=== PATIENT | female | born 1935 | race Caucasian/White ===

== ENCOUNTER → 2016-10-16 | Outpatient (CLI) | payer OTHER ==
[~2016-10-16] MED LIST: LOVASTATIN10 MG PO
== END ==
LOC: MAMMO 12:45
DX: Z12.31 Encounter for screening mammogram for malignant neoplasm of breast (principal)
CPT/HCPCS: G0202

== ENCOUNTER → 2017-10-10 | Outpatient (CLI) | payer OTHER ==
[2013-03-26 09:47] VITALS: BP 166/68
[2017-10-10 09:39] LABS: ALBUMIN 4.1 g/dL (3.5-5.0); BUN/CREATININE RATIO 18.7 (6.0-26.0); CALCIUM 9.6 mg/dL (8.4-10.2); POTASSIUM 4.1 mmol/L (3.6-5.0); TOTAL BILIRUBIN 0.5 mg/dL (0.2-1.3); TOTAL PROTEIN 7.6 g/dL (6.3-8.2)
== END ==
LOC: LAB 09:10
PROVIDERS: Family Medicine
DX: E78.00 Pure hypercholesterolemia, unspecified (principal); R01.1 Cardiac murmur, unspecified; I10 Essential (primary) hypertension

== ENCOUNTER → 2018-10-30 | Outpatient (CLI) | payer OTHER ==
[2013-03-26 09:47] VITALS: BP 166/68
[2018-10-30 09:24] LABS: ALBUMIN 4.3 g/dL (3.5-5.0); POTASSIUM 4.3 mmol/L (3.6-5.0); TOTAL BILIRUBIN 0.5 mg/dL (0.2-1.3); TOTAL PROTEIN 7.7 g/dL (6.3-8.2)
== END ==
LOC: LAB 08:41
PROVIDERS: Family Medicine
DX: E78.00 Pure hypercholesterolemia, unspecified (principal); I10 Essential (primary) hypertension; R01.1 Cardiac murmur, unspecified

== ENCOUNTER → 2018-12-30 | Outpatient (CLI) | payer OTHER ==
[2013-03-26 09:47] VITALS: BP 166/68
== END ==
LOC: MAMMO 10:39
DX: Z12.31 Encounter for screening mammogram for malignant neoplasm of breast (principal); N95.1 Menopausal and female climacteric states

== ENCOUNTER → 2018-12-30 | Outpatient (CLI) | payer OTHER ==
[2013-03-26 09:47] VITALS: BP 166/68
== END ==
LOC: RAD 10:40 → MAMMO 11:30
DX: Z12.31 Encounter for screening mammogram for malignant neoplasm of breast (principal); Z13.820 Encounter for screening for osteoporosis; M85.88 Other specified disorders of bone density and structure, other site

== ENCOUNTER → 2019-04-10 | Outpatient (CLI) | payer OTHER ==
[2013-03-26 09:47] VITALS: BP 166/68
== END ==
LOC: RAD 10:16
DX: J01.00 Acute maxillary sinusitis, unspecified (principal); J30.9 Allergic rhinitis, unspecified; R05 Cough

== ENCOUNTER 2019-08-27 00:13 | Emergency (ER) | payer MEDICARE ==
[~2019-08-27] VITALS: Ht 165.1 cm; Wt 77.7 kg
[2019-08-27] MEDS ORDERED: MULTIVITAMIN1 SGL PO (00:25)
[2019-08-27] MEDS ORDERED: GOOD SENSE ASPI81 M1 PO (00:25)
[2019-08-27] MEDS ORDERED: ALENDRONATE SOD35 M1 PO (00:26)
[2019-08-27] MEDS ORDERED: ZESTRIL5 M1 PO (00:26)
[2019-08-27 00:39] LABS: URINE APPEARANCE CLOUDY; URINE BILIRUBIN NEGATIVE (NEGATIVE); URINE BLOOD 250 ery/uL (NEGATIVE); URINE COLOR YELLOW; URINE GLUCOSE NEGATIVE (NEGATIVE); URINE KETONE NEGATIVE (NEGATIVE); URINE LEUKOCYTE ESTERASE 2+ (NEGATIVE); URINE NITRATE NEGATIVE (NEGATIVE); URINE PROTEIN(semi-quant) 2+ mg/dL (NEGATIVE); URINE UROBILINOGEN NORMAL (NORMAL)
[2019-08-27 00:40] LABS: URINE WBC >50 /hpf (0-3)
[2019-08-27] MEDS ORDERED: CIPRO500 M1 PO (00:57)
[2019-08-27 01:05] VITALS: BP 180/84
[2019-09-01] MEDS ORDERED: MACROBID 100 M100 MG PO (09:26)
== END 2019-08-27 01:05 | disposition home or self-care (01) ==
LOC: ED 00:13
PROVIDERS: Physician Assistant
DX: N39.0 Urinary tract infection, site not specified (principal); I10 Essential (primary) hypertension; M81.0 Age-related osteoporosis without current pathological fracture; E78.5 Hyperlipidemia, unspecified; Z79.82 Long term (current) use of aspirin; Z90.49 Acquired absence of other specified parts of digestive tract

== ENCOUNTER → 2019-10-19 | Outpatient (CLI) | payer MEDICARE ==
[~2019-10-19] MED LIST changes: +ALENDRONATE SOD35 M1 PO; +CIPRO500 M1 PO; +GOOD SENSE ASPI81 M1 PO; +MACROBID 100 M100 MG PO; +MULTIVITAMIN1 SGL PO; +ZESTRIL5 M1 PO
[2019-10-19 09:20] LABS: ALBUMIN 4.2 g/dL (3.4-4.8); POTASSIUM 4.2 mmol/L (3.5-5.1)
[2019-10-19 09:21] LABS: CALCIUM 10.2 mg/dL (8.3-10.5)
[2019-10-19 09:24] LABS: TOTAL BILIRUBIN 0.5 mg/dL (0.2-1.2)
== END ==
LOC: LAB 08:55
PROVIDERS: Family Medicine
DX: E78.00 Pure hypercholesterolemia, unspecified (principal)

== ENCOUNTER → 2020-10-12 | Outpatient (CLI) | payer MEDICARE ==
[2020-10-12 09:41] LABS: POTASSIUM 4.5 mmol/L (3.5-5.1)
[2020-10-12 09:43] LABS: CALCIUM 9.5 mg/dL (8.3-10.5)
[2020-10-12 09:44] LABS: TOTAL PROTEIN 7.2 g/dL (6.2-8.1)
[2020-10-12 09:46] LABS: TOTAL BILIRUBIN 0.5 mg/dL (0.2-1.2)
== END ==
LOC: LAB 09:14
PROVIDERS: Family Medicine
DX: I10 Essential (primary) hypertension (principal); E78.00 Pure hypercholesterolemia, unspecified

== ENCOUNTER → 2020-12-20 | Outpatient (CLI) | payer MEDICARE | LOC: MAMMO 12-13 08:30 | DX: Z12.31 Encounter for screening mammogram for malignant neoplasm of breast (principal) ==

== ENCOUNTER → 2020-12-20 | Outpatient (CLI) | payer MEDICARE | LOC: MAMMO 12-13 09:15 → RAD 09:39 → MAMMO 10:45 | DX: M81.0 Age-related osteoporosis without current pathological fracture (principal); M85.9 Disorder of bone density and structure, unspecified ==

== ENCOUNTER → 2021-11-03 | Outpatient (CLI) | payer MEDICARE ==
[2021-11-03 09:22] LABS: ALBUMIN 4.2 g/dL (3.4-4.8); POTASSIUM 4.8 mmol/L (3.5-5.1)
[2021-11-03 09:23] LABS: CALCIUM 10.1 mg/dL (8.3-10.5)
[2021-11-03 09:26] LABS: TOTAL BILIRUBIN 0.5 mg/dL (0.2-1.2)
== END ==
LOC: LAB 08:38
PROVIDERS: Family Medicine
DX: E78.00 Pure hypercholesterolemia, unspecified (principal); I10 Essential (primary) hypertension

== ENCOUNTER → 2023-04-18 | Outpatient (CLI) | payer MEDICARE ==
[2023-04-18 08:55] LABS: BASO # 0.06 K/mm3 (0.02-0.10); EOS # 0.12 K/mm3 (0.04-0.40); EOS % 1.6 % (1.0-5.0); HEMATOCRIT 39.1 % (37.0-47.0); HEMOGLOBIN 12.8 g/dL (12.5-16.0); LYMPH# 1.49 K/mm3 (1.50-4.00); MEAN CELL VOLUME 99 fl (78-100); MEAN CORPUSCULAR HEMOGLOBIN 33 pg (27-31); MEAN CORPUSCULAR HGB CONC 33 g/dL (33-37); MEAN PLATELET VOLUME 9.6 fl (7.4-10.4); MONO # 0.24 K/mm3 (0.20-0.80); NEU # 5.43 K/mm3 (1.40-6.50); PLATELET COUNT 257 K/mm3 (130-400); RED BLOOD COUNT 3.94 M/mm3 (4.10-5.30); WHITE BLOOD COUNT 7.3 K/mm3 (4.8-10.8)
[2023-04-18 08:59] LABS: ALBUMIN 3.8 g/dL (3.4-4.8); POTASSIUM 4.6 mmol/L (3.5-5.1)
[2023-04-18 09:02] LABS: TOTAL PROTEIN 6.9 g/dL (6.2-8.1)
== END ==
LOC: LAB 08:37
PROVIDERS: Internal Medicine
DX: C25.0 Malignant neoplasm of head of pancreas (principal)

== ENCOUNTER → 2023-04-25 | Outpatient (CLI) | payer MEDICARE ==
[2023-04-25 09:21] LABS: BASO # 0.01 K/mm3 (0.02-0.10); EOS # 0.05 K/mm3 (0.04-0.40); EOS % 0.8 % (1.0-5.0); HEMATOCRIT 35.9 % (37.0-47.0); HEMOGLOBIN 11.8 g/dL (12.5-16.0); MEAN CELL VOLUME 99 fl (78-100); MEAN CORPUSCULAR HEMOGLOBIN 33 pg (27-31); MEAN CORPUSCULAR HGB CONC 33 g/dL (33-37); MONO # 0.09 K/mm3 (0.20-0.80); NEU # 4.85 K/mm3 (1.40-6.50); PLATELET COUNT 145 K/mm3 (130-400); RED BLOOD COUNT 3.62 M/mm3 (4.10-5.30); RED CELL DISTRIBUTION WIDTH 13.7 % (11.5-14.5); WHITE BLOOD COUNT 5.9 K/mm3 (4.8-10.8)
[2023-04-25 09:26] LABS: ALBUMIN 3.7 g/dL (3.4-4.8)
[2023-04-25 09:27] LABS: POTASSIUM 4.3 mmol/L (3.5-5.1)
[2023-04-25 09:28] LABS: CALCIUM 9.8 mg/dL (8.3-10.5)
[2023-04-25 09:29] LABS: TOTAL PROTEIN 6.6 g/dL (6.2-8.1)
== END ==
LOC: LAB 09:01
PROVIDERS: Internal Medicine
DX: C25.0 Malignant neoplasm of head of pancreas (principal)

== ENCOUNTER → 2023-05-23 | Outpatient (CLI) | payer MEDICARE ==
[2023-05-23 10:22] LABS: ALBUMIN 3.5 g/dL (3.4-4.8); POTASSIUM 4.8 mmol/L (3.5-5.1)
[2023-05-23 10:23] LABS: CALCIUM 9.2 mg/dL (8.3-10.5)
[2023-05-23 10:25] LABS: TOTAL PROTEIN 6.2 g/dL (6.2-8.1)
[2023-05-23 10:26] LABS: TOTAL BILIRUBIN 0.7 mg/dL (0.2-1.2)
[2023-05-23 10:37] LABS: HEMATOCRIT 33.9 % (37.0-47.0); HEMOGLOBIN 11.1 g/dL (12.5-16.0); MEAN CELL VOLUME 99 fl (78-100); MEAN CORPUSCULAR HEMOGLOBIN 32 pg (27-31); MEAN CORPUSCULAR HGB CONC 33 g/dL (33-37); PLATELET COUNT 117 K/mm3 (130-400); RED BLOOD COUNT 3.44 M/mm3 (4.10-5.30); RED CELL DISTRIBUTION WIDTH 15.3 % (11.5-14.5)
[2023-05-23 15:40] LABS: LYMPHOCYTE 11 % (20-51); NEUTROPHILS 89 % (42-75)
== END ==
LOC: LAB 09:32
PROVIDERS: Internal Medicine
DX: C25.0 Malignant neoplasm of head of pancreas (principal)

== ENCOUNTER → 2023-05-28 | Outpatient (CLI) | payer MEDICARE | LOC: RAD 08:51 | DX: C25.0 Malignant neoplasm of head of pancreas (principal); K43.9 Ventral hernia without obstruction or gangrene; E27.9 Disorder of adrenal gland, unspecified | CPT/HCPCS: Q9967 ==

== ENCOUNTER → 2023-06-10 | Outpatient (CLI) | payer MEDICARE ==
[2023-06-10 14:19] LABS: ALBUMIN 3.3 g/dL (3.4-4.8)
[2023-06-10 14:21] LABS: CALCIUM 9.8 mg/dL (8.3-10.5)
[2023-06-10 14:22] LABS: TOTAL PROTEIN 6.8 g/dL (6.2-8.1)
[2023-06-10 14:24] LABS: TOTAL BILIRUBIN 0.6 mg/dL (0.2-1.2)
== END ==
LOC: LAB 13:45
PROVIDERS: Internal Medicine
DX: C25.0 Malignant neoplasm of head of pancreas (principal)

== ENCOUNTER → 2023-06-13 | Outpatient (CLI) | payer MEDICARE ==
[2023-06-13 11:10] LABS: BASO # 0.01 K/mm3 (0.02-0.10); EOS # 0.01 K/mm3 (0.04-0.40); EOS % 0.2 % (1.0-5.0); HEMATOCRIT 35.5 % (37.0-47.0); HEMOGLOBIN 11.4 g/dL (12.5-16.0); LYMPH# 0.83 K/mm3 (1.50-4.00); MEAN CELL VOLUME 98 fl (78-100); MEAN CORPUSCULAR HEMOGLOBIN 31 pg (27-31); MEAN CORPUSCULAR HGB CONC 32 g/dL (33-37); MONO # 0.13 K/mm3 (0.20-0.80); PLATELET COUNT 229 K/mm3 (130-400); RED BLOOD COUNT 3.64 M/mm3 (4.10-5.30); RED CELL DISTRIBUTION WIDTH 16.6 % (11.5-14.5); WHITE BLOOD COUNT 5.4 K/mm3 (4.8-10.8)
[2023-06-14 10:41] LABS: ALBUMIN 3.6 g/dL (3.4-4.8)
[2023-06-14 10:42] LABS: CALCIUM 9.3 mg/dL (8.3-10.5)
[2023-06-14 10:44] LABS: TOTAL PROTEIN 6.4 g/dL (6.2-8.1)
[2023-06-14 10:45] LABS: TOTAL BILIRUBIN 0.8 mg/dL (0.2-1.2)
== END ==
LOC: LAB 10:51
PROVIDERS: Internal Medicine
DX: C25.0 Malignant neoplasm of head of pancreas (principal)

== ENCOUNTER → 2023-07-11 | Outpatient (CLI) | payer MEDICARE ==
[2023-07-11 09:06] LABS: BASO # 0.02 K/mm3 (0.02-0.10); EOS # 0.02 K/mm3 (0.04-0.40); EOS % 0.3 % (1.0-5.0); HEMOGLOBIN 10.6 g/dL (12.5-16.0); LYMPH# 0.92 K/mm3 (1.50-4.00); MEAN CELL VOLUME 99 fl (78-100); MEAN CORPUSCULAR HEMOGLOBIN 31 pg (27-31); MEAN CORPUSCULAR HGB CONC 31 g/dL (33-37); MEAN PLATELET VOLUME 9.3 fl (7.4-10.4); NEU # 4.95 K/mm3 (1.40-6.50); PLATELET COUNT 191 K/mm3 (130-400); RED BLOOD COUNT 3.43 M/mm3 (4.10-5.30); RED CELL DISTRIBUTION WIDTH 18.1 % (11.5-14.5); WHITE BLOOD COUNT 6.1 K/mm3 (4.8-10.8)
[2023-07-11 09:12] LABS: ALBUMIN 3.3 g/dL (3.4-4.8)
[2023-07-11 09:14] LABS: CALCIUM 9.6 mg/dL (8.3-10.5)
[2023-07-11 09:17] LABS: TOTAL BILIRUBIN 0.7 mg/dL (0.2-1.2)
== END ==
LOC: LAB 08:52
PROVIDERS: Internal Medicine
DX: C25.0 Malignant neoplasm of head of pancreas (principal)

== ENCOUNTER → 2023-08-08 | Outpatient (CLI) | payer MEDICARE ==
[2023-08-08 10:03] LABS: BASO # 0.01 K/mm3 (0.02-0.10); EOS # 0.01 K/mm3 (0.04-0.40); EOS % 0.1 % (1.0-5.0); HEMATOCRIT 33.1 % (37.0-47.0); HEMOGLOBIN 10.5 g/dL (12.5-16.0); LYMPH# 0.66 K/mm3 (1.50-4.00); MEAN CELL VOLUME 96 fl (78-100); MEAN CORPUSCULAR HEMOGLOBIN 31 pg (27-31); MEAN CORPUSCULAR HGB CONC 32 g/dL (33-37); MEAN PLATELET VOLUME 9.1 fl (7.4-10.4); NEU # 6.44 K/mm3 (1.40-6.50); PLATELET COUNT 175 K/mm3 (130-400); RED BLOOD COUNT 3.44 M/mm3 (4.10-5.30); RED CELL DISTRIBUTION WIDTH 19.3 % (11.5-14.5); WHITE BLOOD COUNT 7.2 K/mm3 (4.8-10.8)
[2023-08-08 10:04] LABS: ALBUMIN 3.4 g/dL (3.4-4.8)
[2023-08-08 10:06] LABS: CALCIUM 9.7 mg/dL (8.3-10.5)
[2023-08-08 10:09] LABS: TOTAL BILIRUBIN 0.7 mg/dL (0.2-1.2)
== END ==
LOC: LAB 09:39
PROVIDERS: Internal Medicine
DX: C25.0 Malignant neoplasm of head of pancreas (principal)

== ENCOUNTER → 2023-08-15 | Outpatient (CLI) | payer MEDICARE ==
[2023-08-15 10:33] LABS: HEMATOCRIT 30.6 % (37.0-47.0); HEMOGLOBIN 9.7 g/dL (12.5-16.0); MEAN CELL VOLUME 96 fl (78-100); MEAN CORPUSCULAR HEMOGLOBIN 30 pg (27-31); MEAN CORPUSCULAR HGB CONC 32 g/dL (33-37); MEAN PLATELET VOLUME 10.6 fl (7.4-10.4); PLATELET COUNT 109 K/mm3 (130-400); RED BLOOD COUNT 3.19 M/mm3 (4.10-5.30); RED CELL DISTRIBUTION WIDTH 20.1 % (11.5-14.5); WHITE BLOOD COUNT 6.4 K/mm3 (4.8-10.8)
[2023-08-15 10:41] LABS: ALBUMIN 3.2 g/dL (3.4-4.8)
[2023-08-15 10:42] LABS: CALCIUM 8.9 mg/dL (8.3-10.5)
[2023-08-15 10:43] LABS: TOTAL PROTEIN 6.4 g/dL (6.2-8.1)
[2023-08-15 11:00] LABS: BAND 1 % (0-10); LYMPHOCYTE 7 % (20-51); MONOCYTE 2 % (3-10); NEUTROPHILS 90 % (42-75)
[2023-08-15 11:01] LABS: HYPOCHROMIA 2+; OVALOCYTES 1+; TEAR DROP CELLS 1+
[2023-08-15 11:02] LABS: MICROCYTOSIS 1+
== END ==
LOC: LAB 10:20
PROVIDERS: Internal Medicine
DX: C25.0 Malignant neoplasm of head of pancreas (principal)

== ENCOUNTER → 2023-09-05 | Outpatient (CLI) | payer MEDICARE ==
[2023-09-05 09:54] LABS: BASO # 0.03 K/mm3 (0.02-0.10); EOS % 1.5 % (1.0-5.0); HEMOGLOBIN 10.2 g/dL (12.5-16.0); LYMPH# 1.83 K/mm3 (1.50-4.00); MEAN CELL VOLUME 97 fl (78-100); MEAN CORPUSCULAR HEMOGLOBIN 30 pg (27-31); MEAN CORPUSCULAR HGB CONC 31 g/dL (33-37); MEAN PLATELET VOLUME 8.9 fl (7.4-10.4); MONO # 0.76 K/mm3 (0.20-0.80); NEU # 3.73 K/mm3 (1.40-6.50); PLATELET COUNT 185 K/mm3 (130-400); RED CELL DISTRIBUTION WIDTH 19.8 % (11.5-14.5); WHITE BLOOD COUNT 6.5 K/mm3 (4.8-10.8)
[2023-09-05 10:17] LABS: ALBUMIN 3.1 g/dL (3.4-4.8)
[2023-09-05 10:19] LABS: CALCIUM 9.5 mg/dL (8.3-10.5)
[2023-09-05 10:22] LABS: TOTAL BILIRUBIN 0.4 mg/dL (0.2-1.2)
== END ==
LOC: LAB 09:36
PROVIDERS: Internal Medicine
DX: C25.0 Malignant neoplasm of head of pancreas (principal)

== ENCOUNTER → 2023-09-19 | Outpatient (CLI) | payer MEDICARE ==
[2023-09-19 10:02] LABS: BASO # 0.02 K/mm3 (0.02-0.10); EOS # 0.18 K/mm3 (0.04-0.40); EOS % 3.5 % (1.0-5.0); HEMATOCRIT 34.2 % (37.0-47.0); HEMOGLOBIN 10.7 g/dL (12.5-16.0); LYMPH# 1.36 K/mm3 (1.50-4.00); MEAN CELL VOLUME 96 fl (78-100); MEAN CORPUSCULAR HEMOGLOBIN 30 pg (27-31); MEAN CORPUSCULAR HGB CONC 31 g/dL (33-37); MEAN PLATELET VOLUME 9.3 fl (7.4-10.4); MONO # 0.53 K/mm3 (0.20-0.80); NEU # 2.95 K/mm3 (1.40-6.50); PLATELET COUNT 166 K/mm3 (130-400); RED BLOOD COUNT 3.56 M/mm3 (4.10-5.30); RED CELL DISTRIBUTION WIDTH 19.4 % (11.5-14.5); WHITE BLOOD COUNT 5.1 K/mm3 (4.8-10.8)
[2023-09-19 10:05] LABS: ALBUMIN 3.2 g/dL (3.4-4.8)
[2023-09-19 10:07] LABS: CALCIUM 9.8 mg/dL (8.3-10.5)
[2023-09-19 10:08] LABS: TOTAL PROTEIN 7.3 g/dL (6.2-8.1)
[2023-09-19 10:10] LABS: TOTAL BILIRUBIN 0.4 mg/dL (0.2-1.2)
== END ==
LOC: LAB 09:42
PROVIDERS: Internal Medicine
DX: C25.0 Malignant neoplasm of head of pancreas (principal)

== ENCOUNTER → 2023-10-03 | Outpatient (CLI) | payer MEDICARE ==
[2023-10-03 10:04] LABS: BASO # 0.01 K/mm3 (0.02-0.10); EOS # 0.11 K/mm3 (0.04-0.40); EOS % 2.4 % (1.0-5.0); HEMATOCRIT 33.5 % (37.0-47.0); HEMOGLOBIN 10.6 g/dL (12.5-16.0); LYMPH# 1.84 K/mm3 (1.50-4.00); MEAN CELL VOLUME 97 fl (78-100); MEAN CORPUSCULAR HEMOGLOBIN 31 pg (27-31); MEAN CORPUSCULAR HGB CONC 32 g/dL (33-37); MEAN PLATELET VOLUME 9.1 fl (7.4-10.4); MONO # 0.37 K/mm3 (0.20-0.80); NEU # 2.16 K/mm3 (1.40-6.50); PLATELET COUNT 147 K/mm3 (130-400); RED BLOOD COUNT 3.46 M/mm3 (4.10-5.30); RED CELL DISTRIBUTION WIDTH 18.4 % (11.5-14.5); WHITE BLOOD COUNT 4.5 K/mm3 (4.8-10.8)
[2023-10-03 10:09] LABS: ALBUMIN 3.1 g/dL (3.4-4.8)
[2023-10-03 10:11] LABS: CALCIUM 9.9 mg/dL (8.3-10.5)
[2023-10-03 10:14] LABS: TOTAL BILIRUBIN 0.3 mg/dL (0.2-1.2)
== END ==
LOC: LAB 09:42
PROVIDERS: Internal Medicine
DX: C25.0 Malignant neoplasm of head of pancreas (principal)

== ENCOUNTER → 2023-10-31 | Outpatient (CLI) | payer MEDICARE ==
[2023-10-31 11:42] LABS: BASO # 0.02 K/mm3 (0.02-0.10); EOS # 0.09 K/mm3 (0.04-0.40); EOS % 1.5 % (1.0-5.0); HEMATOCRIT 36.4 % (37.0-47.0); HEMOGLOBIN 11.6 g/dL (12.5-16.0); LYMPH# 1.66 K/mm3 (1.50-4.00); MEAN CELL VOLUME 95 fl (78-100); MEAN CORPUSCULAR HEMOGLOBIN 30 pg (27-31); MEAN CORPUSCULAR HGB CONC 32 g/dL (33-37); MEAN PLATELET VOLUME 9.8 fl (7.4-10.4); MONO # 0.66 K/mm3 (0.20-0.80); NEU # 3.54 K/mm3 (1.40-6.50); PLATELET COUNT 151 K/mm3 (130-400); RED BLOOD COUNT 3.83 M/mm3 (4.10-5.30)
[2023-10-31 11:48] LABS: ALBUMIN 3.5 g/dL (3.4-4.8)
[2023-10-31 11:49] LABS: CALCIUM 10.5 mg/dL (8.3-10.5)
[2023-10-31 11:50] LABS: TOTAL PROTEIN 7.5 g/dL (6.2-8.1)
[2023-10-31 11:52] LABS: TOTAL BILIRUBIN 0.4 mg/dL (0.2-1.2)
== END ==
LOC: LAB 10:54
PROVIDERS: Internal Medicine
DX: C25.0 Malignant neoplasm of head of pancreas (principal)

== ENCOUNTER → 2023-12-05 | Outpatient (CLI) | payer MEDICARE ==
[2023-12-05 10:33] LABS: BASO # 0.01 K/mm3 (0.02-0.10); EOS % 0.8 % (1.0-5.0); HEMATOCRIT 34.2 % (37.0-47.0); HEMOGLOBIN 11.5 g/dL (12.5-16.0); LYMPH# 1.01 K/mm3 (1.50-4.00); MEAN CELL VOLUME 91 fl (78-100); MEAN CORPUSCULAR HEMOGLOBIN 31 pg (27-31); MEAN CORPUSCULAR HGB CONC 34 g/dL (33-37); MEAN PLATELET VOLUME 8.9 fl (7.4-10.4); MONO # 1.05 K/mm3 (0.20-0.80); NEU # 10.55 K/mm3 (1.40-6.50); PLATELET COUNT 205 K/mm3 (130-400); RED BLOOD COUNT 3.74 M/mm3 (4.10-5.30); RED CELL DISTRIBUTION WIDTH 16.5 % (11.5-14.5); WHITE BLOOD COUNT 12.7 K/mm3 (4.8-10.8)
[2023-12-05 10:37] LABS: ALBUMIN 3.3 g/dL (3.4-4.8)
[2023-12-05 10:38] LABS: CALCIUM 9.2 mg/dL (8.3-10.5)
[2023-12-05 10:39] LABS: TOTAL PROTEIN 6.5 g/dL (6.2-8.1)
[2023-12-05 10:41] LABS: TOTAL BILIRUBIN 0.7 mg/dL (0.2-1.2)
== END ==
LOC: LAB 10:14
PROVIDERS: Internal Medicine
DX: C25.0 Malignant neoplasm of head of pancreas (principal)

== ENCOUNTER → 2024-01-03 | Outpatient (CLI) | payer MEDICARE ==
[2024-02-26 11:06] LABS: BASO # 0.02 K/mm3 (0.02-0.10); EOS # 0.12 K/mm3 (0.04-0.40); EOS % 1.5 % (1.0-5.0); HEMATOCRIT 37.9 % (37.0-47.0); HEMOGLOBIN 12.1 g/dL (12.5-16.0); LYMPH# 1.85 K/mm3 (1.50-4.00); MEAN CELL VOLUME 96 fl (78-100); MEAN CORPUSCULAR HEMOGLOBIN 31 pg (27-31); MEAN CORPUSCULAR HGB CONC 32 g/dL (33-37); MEAN PLATELET VOLUME 9.2 fl (7.4-10.4); MONO # 0.59 K/mm3 (0.20-0.80); NEU # 5.24 K/mm3 (1.40-6.50); PLATELET COUNT 279 K/mm3 (130-400); RED BLOOD COUNT 3.96 M/mm3 (4.10-5.30); WHITE BLOOD COUNT 7.8 K/mm3 (4.8-10.8)
[2024-02-26 11:07] LABS: CALCIUM 9.8 mg/dL (8.3-10.5)
== END ==
LOC: LAB 12:06
PROVIDERS: Internal Medicine
DX: C25.0 Malignant neoplasm of head of pancreas (principal)

== ENCOUNTER → 2024-01-29 | Outpatient (CLI) | payer MEDICARE ==
[2024-01-29 13:43] LABS: BASO # 0.01 K/mm3 (0.02-0.10); HEMATOCRIT 33.9 % (37.0-47.0); HEMOGLOBIN 11.1 g/dL (12.5-16.0); LYMPH# 1.34 K/mm3 (1.50-4.00); MEAN CELL VOLUME 96 fl (78-100); MEAN CORPUSCULAR HEMOGLOBIN 31 pg (27-31); MEAN CORPUSCULAR HGB CONC 33 g/dL (33-37); MEAN PLATELET VOLUME 9.2 fl (7.4-10.4); NEU # 3.06 K/mm3 (1.40-6.50); PLATELET COUNT 200 K/mm3 (130-400); RED BLOOD COUNT 3.53 M/mm3 (4.10-5.30); RED CELL DISTRIBUTION WIDTH 17.5 % (11.5-14.5); WHITE BLOOD COUNT 4.9 K/mm3 (4.8-10.8)
[2024-01-29 13:46] LABS: ALBUMIN 3.5 g/dL (3.4-4.8)
[2024-01-29 13:48] LABS: CALCIUM 9.5 mg/dL (8.3-10.5)
[2024-01-29 13:49] LABS: TOTAL PROTEIN 6.5 g/dL (6.2-8.1)
[2024-01-29 13:51] LABS: TOTAL BILIRUBIN 0.5 mg/dL (0.2-1.2)
== END ==
LOC: LAB 13:19
PROVIDERS: Nurse Practitioner Family
DX: C25.0 Malignant neoplasm of head of pancreas (principal)

== ENCOUNTER → 2024-02-14 | Outpatient (CLI) | payer MEDICARE ==
[2024-02-14 11:52] LABS: BASO # 0.02 K/mm3 (0.02-0.10); EOS # 0.06 K/mm3 (0.04-0.40); EOS % 1.1 % (1.0-5.0); HEMATOCRIT 36.5 % (37.0-47.0); LYMPH# 1.56 K/mm3 (1.50-4.00); MEAN CELL VOLUME 98 fl (78-100); MEAN CORPUSCULAR HEMOGLOBIN 32 pg (27-31); MEAN CORPUSCULAR HGB CONC 33 g/dL (33-37); MEAN PLATELET VOLUME 9.3 fl (7.4-10.4); MONO # 0.45 K/mm3 (0.20-0.80); NEU # 3.22 K/mm3 (1.40-6.50); PLATELET COUNT 266 K/mm3 (130-400); RED BLOOD COUNT 3.74 M/mm3 (4.10-5.30); RED CELL DISTRIBUTION WIDTH 17.5 % (11.5-14.5); WHITE BLOOD COUNT 5.3 K/mm3 (4.8-10.8)
[2024-02-14 12:15] LABS: ALBUMIN 3.4 g/dL (3.4-4.8)
[2024-02-14 12:17] LABS: CALCIUM 9.4 mg/dL (8.3-10.5)
[2024-02-14 12:18] LABS: TOTAL PROTEIN 6.1 g/dL (6.2-8.1)
[2024-02-14 12:20] LABS: TOTAL BILIRUBIN 0.4 mg/dL (0.2-1.2)
== END ==
LOC: LAB 11:33
PROVIDERS: Internal Medicine
DX: C25.0 Malignant neoplasm of head of pancreas (principal)

== ENCOUNTER → 2024-02-26 | Outpatient (CLI) | payer MEDICARE ==
[~2024-02-26] MED LIST changes: +Iohexol 300 - 100 ML VIAL IV ONE
[2024-02-26 09:13] LABS: BASO # 0.02 K/mm3 (0.02-0.10); EOS # 0.13 K/mm3 (0.04-0.40); EOS % 2.4 % (1.0-5.0); HEMATOCRIT 37.2 % (37.0-47.0); HEMOGLOBIN 12.2 g/dL (12.5-16.0); LYMPH# 1.87 K/mm3 (1.50-4.00); MEAN CELL VOLUME 100 fl (78-100); MEAN CORPUSCULAR HEMOGLOBIN 33 pg (27-31); MEAN CORPUSCULAR HGB CONC 33 g/dL (33-37); MEAN PLATELET VOLUME 9.2 fl (7.4-10.4); MONO # 0.35 K/mm3 (0.20-0.80); NEU # 2.95 K/mm3 (1.40-6.50); PLATELET COUNT 245 K/mm3 (130-400); RED BLOOD COUNT 3.71 M/mm3 (4.10-5.30); RED CELL DISTRIBUTION WIDTH 16.8 % (11.5-14.5); WHITE BLOOD COUNT 5.3 K/mm3 (4.8-10.8)
[2024-02-26 09:16] LABS: ALBUMIN 3.5 g/dL (3.4-4.8)
[2024-02-26 09:18] LABS: CALCIUM 10.3 mg/dL (8.3-10.5)
[2024-02-26 09:19] LABS: TOTAL PROTEIN 6.2 g/dL (6.2-8.1)
[2024-02-26 09:21] LABS: TOTAL BILIRUBIN 0.4 mg/dL (0.2-1.2)
== END ==
LOC: LAB 08:47 → RAD 09:00
PROVIDERS: Internal Medicine
DX: C25.0 Malignant neoplasm of head of pancreas (principal)
CPT/HCPCS: Q9967

== ENCOUNTER → 2024-03-26 | Outpatient (CLI) | payer MEDICARE ==
[~2024-03-26] MED LIST changes: -Iohexol 300 - 100 ML VIAL IV ONE
[2024-03-26 10:43] LABS: BASO # 0.02 K/mm3 (0.02-0.10); EOS # 0.05 K/mm3 (0.04-0.40); EOS % 1.2 % (1.0-5.0); HEMATOCRIT 37.6 % (37.0-47.0); HEMOGLOBIN 12.2 g/dL (12.5-16.0); MEAN CELL VOLUME 102 fl (78-100); MEAN CORPUSCULAR HEMOGLOBIN 33 pg (27-31); MEAN CORPUSCULAR HGB CONC 32 g/dL (33-37); MEAN PLATELET VOLUME 9.2 fl (7.4-10.4); MONO # 0.31 K/mm3 (0.20-0.80); NEU # 2.17 K/mm3 (1.40-6.50); PLATELET COUNT 289 K/mm3 (130-400); RED BLOOD COUNT 3.68 M/mm3 (4.10-5.30); RED CELL DISTRIBUTION WIDTH 15.9 % (11.5-14.5); WHITE BLOOD COUNT 4.3 K/mm3 (4.8-10.8)
[2024-03-26 10:49] LABS: ALBUMIN 3.3 g/dL (3.4-4.8)
[2024-03-26 10:50] LABS: CALCIUM 9.2 mg/dL (8.3-10.5)
[2024-03-26 10:52] LABS: TOTAL PROTEIN 5.7 g/dL (6.2-8.1)
[2024-03-26 10:53] LABS: TOTAL BILIRUBIN 0.3 mg/dL (0.2-1.2)
== END ==
LOC: LAB 10:27
PROVIDERS: Internal Medicine
DX: C25.0 Malignant neoplasm of head of pancreas (principal)

== ENCOUNTER → 2024-04-09 | Outpatient (CLI) | payer MEDICARE ==
[2024-04-09 11:27] LABS: BASO # 0.02 K/mm3 (0.02-0.10); EOS # 0.05 K/mm3 (0.04-0.40); EOS % 0.9 % (1.0-5.0); HEMATOCRIT 38.2 % (37.0-47.0); HEMOGLOBIN 12.4 g/dL (12.5-16.0); LYMPH# 1.67 K/mm3 (1.50-4.00); MEAN CELL VOLUME 103 fl (78-100); MEAN CORPUSCULAR HEMOGLOBIN 33 pg (27-31); MEAN CORPUSCULAR HGB CONC 33 g/dL (33-37); MEAN PLATELET VOLUME 9.4 fl (7.4-10.4); MONO # 0.42 K/mm3 (0.20-0.80); NEU # 3.11 K/mm3 (1.40-6.50); PLATELET COUNT 278 K/mm3 (130-400); RED BLOOD COUNT 3.71 M/mm3 (4.10-5.30); WHITE BLOOD COUNT 5.3 K/mm3 (4.8-10.8)
[2024-04-09 11:32] LABS: ALBUMIN 3.4 g/dL (3.4-4.8)
[2024-04-09 11:33] LABS: CALCIUM 9.6 mg/dL (8.3-10.5)
[2024-04-09 11:36] LABS: TOTAL BILIRUBIN 0.3 mg/dL (0.2-1.2)
== END ==
LOC: LAB 11:04
PROVIDERS: Internal Medicine
DX: C25.0 Malignant neoplasm of head of pancreas (principal)

== ENCOUNTER → 2024-04-24 | Outpatient (CLI) | payer MEDICARE ==
[2024-04-24 13:54] LABS: BASO # 0.02 K/mm3 (0.02-0.10); EOS # 0.06 K/mm3 (0.04-0.40); EOS % 1.2 % (1.0-5.0); HEMOGLOBIN 12.3 g/dL (12.5-16.0); LYMPH# 2.05 K/mm3 (1.50-4.00); MEAN CELL VOLUME 102 fl (78-100); MEAN CORPUSCULAR HEMOGLOBIN 34 pg (27-31); MEAN CORPUSCULAR HGB CONC 33 g/dL (33-37); MEAN PLATELET VOLUME 9.4 fl (7.4-10.4); MONO # 0.35 K/mm3 (0.20-0.80); NEU # 2.59 K/mm3 (1.40-6.50); PLATELET COUNT 217 K/mm3 (130-400); RED BLOOD COUNT 3.62 M/mm3 (4.10-5.30); RED CELL DISTRIBUTION WIDTH 16.1 % (11.5-14.5); WHITE BLOOD COUNT 5.1 K/mm3 (4.8-10.8)
[2024-04-24 13:59] LABS: ALBUMIN 3.4 g/dL (3.4-4.8)
[2024-04-24 14:01] LABS: CALCIUM 9.4 mg/dL (8.3-10.5)
[2024-04-24 14:02] LABS: TOTAL PROTEIN 6.2 g/dL (6.2-8.1)
[2024-04-24 14:04] LABS: TOTAL BILIRUBIN 0.4 mg/dL (0.2-1.2)
== END ==
LOC: LAB 13:26
PROVIDERS: Internal Medicine
DX: C25.0 Malignant neoplasm of head of pancreas (principal)

== ENCOUNTER → 2024-05-08 | Outpatient (CLI) | payer MEDICARE ==
[2024-05-08 12:29] LABS: BASO # 0.02 K/mm3 (0.02-0.10); EOS # 0.04 K/mm3 (0.04-0.40); EOS % 0.8 % (1.0-5.0); HEMATOCRIT 36.7 % (37.0-47.0); LYMPH# 1.44 K/mm3 (1.50-4.00); MEAN CELL VOLUME 104 fl (78-100); MEAN CORPUSCULAR HEMOGLOBIN 34 pg (27-31); MEAN CORPUSCULAR HGB CONC 33 g/dL (33-37); MEAN PLATELET VOLUME 9.3 fl (7.4-10.4); MONO # 0.49 K/mm3 (0.20-0.80); NEU # 2.92 K/mm3 (1.40-6.50); PLATELET COUNT 248 K/mm3 (130-400); RED BLOOD COUNT 3.54 M/mm3 (4.10-5.30); RED CELL DISTRIBUTION WIDTH 16.2 % (11.5-14.5); WHITE BLOOD COUNT 4.9 K/mm3 (4.8-10.8)
[2024-05-08 12:33] LABS: ALBUMIN 3.3 g/dL (3.4-4.8)
[2024-05-08 12:35] LABS: CALCIUM 8.9 mg/dL (8.3-10.5)
[2024-05-08 12:36] LABS: TOTAL PROTEIN 5.7 g/dL (6.2-8.1)
[2024-05-08 12:38] LABS: TOTAL BILIRUBIN 0.3 mg/dL (0.2-1.2)
== END ==
LOC: LAB 12:00
PROVIDERS: Internal Medicine
DX: C25.0 Malignant neoplasm of head of pancreas (principal)

== ENCOUNTER → 2024-05-20 | Outpatient (CLI) | payer MEDICARE ==
[~2024-05-20] MED LIST changes: +Iohexol 300 - 100 ML VIAL IV ONE
== END ==
LOC: RAD 09:00
DX: C25.0 Malignant neoplasm of head of pancreas (principal); R18.8 Other ascites; K82.8 Other specified diseases of gallbladder
CPT/HCPCS: Q9967

== ENCOUNTER → 2024-05-21 | Outpatient (CLI) | payer MEDICARE ==
[~2024-05-21] MED LIST changes: -Iohexol 300 - 100 ML VIAL IV ONE
[2024-05-21 11:17] LABS: BASO # 0.01 K/mm3 (0.02-0.10); EOS # 0.03 K/mm3 (0.04-0.40); EOS % 0.7 % (1.0-5.0); HEMATOCRIT 33.7 % (37.0-47.0); HEMOGLOBIN 11.4 g/dL (12.5-16.0); LYMPH# 1.03 K/mm3 (1.50-4.00); MEAN CELL VOLUME 102 fl (78-100); MEAN CORPUSCULAR HEMOGLOBIN 35 pg (27-31); MEAN CORPUSCULAR HGB CONC 34 g/dL (33-37); MEAN PLATELET VOLUME 9.6 fl (7.4-10.4); MONO # 0.43 K/mm3 (0.20-0.80); NEU # 2.98 K/mm3 (1.40-6.50); PLATELET COUNT 219 K/mm3 (130-400); WHITE BLOOD COUNT 4.5 K/mm3 (4.8-10.8)
[2024-05-21 11:21] LABS: ALBUMIN 3.1 g/dL (3.4-4.8)
[2024-05-21 11:22] LABS: CALCIUM 9.1 mg/dL (8.3-10.5)
[2024-05-21 11:23] LABS: TOTAL PROTEIN 5.9 g/dL (6.2-8.1)
[2024-05-21 11:25] LABS: TOTAL BILIRUBIN 0.4 mg/dL (0.2-1.2)
== END ==
LOC: LAB 10:57
PROVIDERS: Internal Medicine
DX: C25.0 Malignant neoplasm of head of pancreas (principal)

== ENCOUNTER 2024-06-05 10:50 | Emergency (ER) | payer MEDICARE ==
[~2024-06-05] VITALS: Ht 165.1 cm; Wt 58.6 kg
[2024-06-05 11:11] LABS: BASO # 0.02 K/mm3 (0.02-0.10); EOS # 0.03 K/mm3 (0.04-0.40); EOS % 0.3 % (1.0-5.0); HEMATOCRIT 39.9 % (37.0-47.0); HEMOGLOBIN 12.7 g/dL (12.5-16.0); LYMPH# 1.85 K/mm3 (1.50-4.00); MEAN CELL VOLUME 104 fl (78-100); MEAN CORPUSCULAR HEMOGLOBIN 33 pg (27-31); MEAN CORPUSCULAR HGB CONC 32 g/dL (33-37); MEAN PLATELET VOLUME 8.9 fl (7.4-10.4); MONO # 0.67 K/mm3 (0.20-0.80); NEU # 8.76 K/mm3 (1.40-6.50); PLATELET COUNT 406 K/mm3 (130-400); RED BLOOD COUNT 3.84 M/mm3 (4.10-5.30); RED CELL DISTRIBUTION WIDTH 15.8 % (11.5-14.5); WHITE BLOOD COUNT 11.4 K/mm3 (4.8-10.8)
[2024-06-05] MEDS ORDERED: FISH OIL 1,0001 EAC1 PO (11:14)
[2024-06-05] MEDS ORDERED: GLUCOSAMINE CH1 EAC5 PO (11:15)
[2024-06-05] MEDS ORDERED: NATURE'S BLEND500 M1 PO (11:15)
[2024-06-05 11:17] LABS: ALBUMIN 2.9 g/dL (3.4-4.8)
[2024-06-05 11:19] LABS: CALCIUM 8.7 mg/dL (8.3-10.5)
[2024-06-05 11:20] LABS: TOTAL PROTEIN 6.1 g/dL (6.2-8.1)
[2024-06-05 11:22] LABS: TOTAL BILIRUBIN 0.4 mg/dL (0.2-1.2)
[2024-06-05] MEDS ORDERED: ELIQUIS2.5 MG PO (12:09)
[2024-06-05] MEDS ORDERED: diphenhydrAMINE 50 MG/ML 1 ML VIAL IV ONE (12:15)
[2024-06-05] MEDS ORDERED: Apixaban 2.5 MG TABLET PO ONE (12:15)
[2024-06-05 12:25] VITALS: BP 128/68
== END 2024-06-05 12:32 | disposition home or self-care (01) ==
LOC: ED 10:50
PROVIDERS: Family Medicine
DX: R11.2 Nausea with vomiting, unspecified (principal); R19.7 Diarrhea, unspecified; I48.91 Unspecified atrial fibrillation; R74.01 Elevation of levels of liver transaminase levels; R74.8 Abnormal levels of other serum enzymes; Z85.07 Personal history of malignant neoplasm of pancreas; Z79.82 Long term (current) use of aspirin
CPT/HCPCS: J0780; J1200; J7120

== ENCOUNTER → 2024-07-08 | Outpatient (CLI) | payer MEDICARE ==
[~2024-07-08] MED LIST changes: +ELIQUIS2.5 MG PO; +FISH OIL 1,0001 EAC1 PO; +GLUCOSAMINE CH1 EAC5 PO; +NATURE'S BLEND500 M1 PO
[2024-07-08 10:08] LABS: BASO # 0.03 K/mm3 (0.02-0.10); EOS # 0.03 K/mm3 (0.04-0.40); EOS % 0.7 % (1.0-5.0); HEMOGLOBIN 12.8 g/dL (12.5-16.0); LYMPH# 1.98 K/mm3 (1.50-4.00); MEAN CELL VOLUME 101 fl (78-100); MEAN CORPUSCULAR HEMOGLOBIN 32 pg (27-31); MEAN CORPUSCULAR HGB CONC 32 g/dL (33-37); MEAN PLATELET VOLUME 8.9 fl (7.4-10.4); MONO # 0.53 K/mm3 (0.20-0.80); NEU # 1.64 K/mm3 (1.40-6.50); PLATELET COUNT 357 K/mm3 (130-400); RED BLOOD COUNT 3.95 M/mm3 (4.10-5.30); RED CELL DISTRIBUTION WIDTH 16.6 % (11.5-14.5); WHITE BLOOD COUNT 4.2 K/mm3 (4.8-10.8)
[2024-07-08 10:14] LABS: ALBUMIN 3.2 g/dL (3.4-4.8)
[2024-07-08 10:16] LABS: CALCIUM 9.9 mg/dL (8.3-10.5)
[2024-07-08 10:17] LABS: TOTAL PROTEIN 6.3 g/dL (6.2-8.1)
[2024-07-08 10:19] LABS: TOTAL BILIRUBIN 0.5 mg/dL (0.2-1.2)
[2024-07-08 10:23] LABS: MAGNESIUM 1.72 mg/dL (1.60-2.60)
== END ==
LOC: LAB 09:56
PROVIDERS: Internal Medicine
DX: C25.0 Malignant neoplasm of head of pancreas (principal)

== ENCOUNTER → 2024-07-23 | Outpatient (CLI) | payer MEDICARE ==
[2024-07-23 11:27] LABS: BASO # 0.03 K/mm3 (0.02-0.10); EOS # 0.03 K/mm3 (0.04-0.40); EOS % 0.4 % (1.0-5.0); HEMATOCRIT 35.2 % (37.0-47.0); HEMOGLOBIN 11.9 g/dL (12.5-16.0); LYMPH# 2.11 K/mm3 (1.50-4.00); MEAN CELL VOLUME 101 fl (78-100); MEAN CORPUSCULAR HEMOGLOBIN 34 pg (27-31); MEAN CORPUSCULAR HGB CONC 34 g/dL (33-37); MEAN PLATELET VOLUME 10.1 fl (7.4-10.4); MONO # 0.33 K/mm3 (0.20-0.80); PLATELET COUNT 147 K/mm3 (130-400); RED CELL DISTRIBUTION WIDTH 16.3 % (11.5-14.5); WHITE BLOOD COUNT 8.2 K/mm3 (4.8-10.8)
[2024-07-23 11:32] LABS: ALBUMIN 3.1 g/dL (3.4-4.8)
[2024-07-23 11:34] LABS: CALCIUM 9.3 mg/dL (8.3-10.5)
[2024-07-23 11:35] LABS: TOTAL PROTEIN 6.2 g/dL (6.2-8.1)
[2024-07-23 11:37] LABS: TOTAL BILIRUBIN 0.4 mg/dL (0.2-1.2)
[2024-07-23 11:41] LABS: MAGNESIUM 1.46 mg/dL (1.60-2.60)
== END ==
LOC: LAB 11:02
PROVIDERS: Internal Medicine
DX: C25.0 Malignant neoplasm of head of pancreas (principal)

== ENCOUNTER → 2024-08-07 | Outpatient (CLI) | payer MEDICARE ==
[2024-08-07 10:17] LABS: BASO # 0.02 K/mm3 (0.02-0.10); EOS # 0.04 K/mm3 (0.04-0.40); EOS % 0.5 % (1.0-5.0); HEMOGLOBIN 10.9 g/dL (12.5-16.0); LYMPH# 1.46 K/mm3 (1.50-4.00); MEAN CELL VOLUME 101 fl (78-100); MEAN CORPUSCULAR HEMOGLOBIN 32 pg (27-31); MEAN CORPUSCULAR HGB CONC 32 g/dL (33-37); MEAN PLATELET VOLUME 9.7 fl (7.4-10.4); MONO # 0.86 K/mm3 (0.20-0.80); NEU # 5.59 K/mm3 (1.40-6.50); PLATELET COUNT 269 K/mm3 (130-400); RED BLOOD COUNT 3.36 M/mm3 (4.10-5.30); RED CELL DISTRIBUTION WIDTH 17.3 % (11.5-14.5)
[2024-08-07 10:24] LABS: ALBUMIN 2.7 g/dL (3.4-4.8)
[2024-08-07 10:26] LABS: CALCIUM 8.8 mg/dL (8.3-10.5)
[2024-08-07 10:27] LABS: TOTAL PROTEIN 5.6 g/dL (6.2-8.1)
[2024-08-07 10:29] LABS: TOTAL BILIRUBIN 0.3 mg/dL (0.2-1.2)
[2024-08-07 10:33] LABS: MAGNESIUM 1.48 mg/dL (1.60-2.60)
== END ==
LOC: LAB 09:53
PROVIDERS: Internal Medicine
DX: C25.0 Malignant neoplasm of head of pancreas (principal)

== ENCOUNTER → 2024-08-20 | Outpatient (CLI) | payer MEDICARE ==
[~2024-08-20] MED LIST changes: +ACETAMINOPHEN-H1 TA1 PO; +DURAGESIC25 MCG/PAT TD; +FAMOTIDINE20 MG PO; +FUROSEMIDE20 MG PO; +METOPROLOL SUCC25 M1 PO; +POTASSIUM CHLO10 ME6 PO; +PROCHLORPERAZIN10 M2 PO; +REGLAN10 M2 PO; +ZOFRAN ODT4 MG PO; +[UNRECOGNIZED DRUG - REMARK] PO
[2024-08-20 12:34] LABS: BASO # 0.02 K/mm3 (0.02-0.10); EOS # 0.04 K/mm3 (0.04-0.40); EOS % 0.8 % (1.0-5.0); HEMATOCRIT 33.7 % (37.0-47.0); HEMOGLOBIN 10.6 g/dL (12.5-16.0); LYMPH# 1.39 K/mm3 (1.50-4.00); MEAN CELL VOLUME 102 fl (78-100); MEAN CORPUSCULAR HEMOGLOBIN 32 pg (27-31); MEAN CORPUSCULAR HGB CONC 32 g/dL (33-37); MEAN PLATELET VOLUME 9.5 fl (7.4-10.4); MONO # 0.51 K/mm3 (0.20-0.80); NEU # 3.16 K/mm3 (1.40-6.50); PLATELET COUNT 190 K/mm3 (130-400); RED BLOOD COUNT 3.32 M/mm3 (4.10-5.30); RED CELL DISTRIBUTION WIDTH 17.9 % (11.5-14.5); WHITE BLOOD COUNT 5.1 K/mm3 (4.8-10.8)
[2024-08-20 12:51] LABS: CALCIUM 8.9 mg/dL (8.3-10.5)
[2024-08-20 12:54] LABS: TOTAL BILIRUBIN 0.3 mg/dL (0.2-1.2)
[2024-08-20 12:59] LABS: MAGNESIUM 1.75 mg/dL (1.60-2.60)
== END ==
LOC: LAB 12:14
PROVIDERS: Internal Medicine
DX: C25.0 Malignant neoplasm of head of pancreas (principal)

== ENCOUNTER 2024-08-24 11:15 | Emergency (ER) | payer MEDICARE ==
[~2024-08-24] VITALS: Ht 165.1 cm; Wt 51.4 kg
[~2024-08-24 11:15] MED LIST changes: -ACETAMINOPHEN-H1 TA1 PO; -DURAGESIC25 MCG/PAT TD; -FAMOTIDINE20 MG PO; -FUROSEMIDE20 MG PO; -METOPROLOL SUCC25 M1 PO; -POTASSIUM CHLO10 ME6 PO; -PROCHLORPERAZIN10 M2 PO; -REGLAN10 M2 PO; -ZOFRAN ODT4 MG PO; -[UNRECOGNIZED DRUG - REMARK] PO
[2024-08-24] MEDS ORDERED: FUROSEMIDE20 MG PO (11:43)
[2024-08-24] MEDS ORDERED: METOPROLOL SUCC25 M1 PO (11:43)
[2024-08-24] MEDS ORDERED: POTASSIUM CHLO10 ME6 PO (11:44)
[2024-08-24] MEDS ORDERED: FAMOTIDINE20 MG PO (11:44)
[2024-08-24] MEDS ORDERED: ZOFRAN ODT4 MG PO (11:44)
[2024-08-24] MEDS ORDERED: DURAGESIC25 MCG/PAT TD (11:45)
[2024-08-24] MEDS ORDERED: ACETAMINOPHEN-H1 TA1 PO (11:45)
[2024-08-24] MEDS ORDERED: PROCHLORPERAZIN10 M2 PO (11:46)
[2024-08-24] MEDS ORDERED: [UNRECOGNIZED DRUG - REMARK] PO (11:47)
[2024-08-24] MEDS ORDERED: NS 1,000 ML IV SCH (12:15)
[2024-08-24 12:23] LABS: BASO # 0.01 K/mm3 (0.02-0.10); EOS # 0.04 K/mm3 (0.04-0.40); EOS % 0.5 % (1.0-5.0); HEMATOCRIT 34.8 % (37.0-47.0); HEMOGLOBIN 11.3 g/dL (12.5-16.0); LYMPH# 1.27 K/mm3 (1.50-4.00); MEAN CELL VOLUME 98 fl (78-100); MEAN CORPUSCULAR HEMOGLOBIN 32 pg (27-31); MEAN CORPUSCULAR HGB CONC 33 g/dL (33-37); MEAN PLATELET VOLUME 9.2 fl (7.4-10.4); MONO # 0.85 K/mm3 (0.20-0.80); PLATELET COUNT 237 K/mm3 (130-400); RED BLOOD COUNT 3.56 M/mm3 (4.10-5.30); RED CELL DISTRIBUTION WIDTH 18.2 % (11.5-14.5); WHITE BLOOD COUNT 7.8 K/mm3 (4.8-10.8)
[2024-08-24 12:24] LABS: ALBUMIN 2.9 g/dL (3.4-4.8)
[2024-08-24 12:29] LABS: TOTAL BILIRUBIN 0.6 mg/dL (0.2-1.2)
[2024-08-24 12:30] LABS: CALCIUM 8.9 mg/dL (8.3-10.5)
[2024-08-24 12:31] LABS: TOTAL PROTEIN 5.7 g/dL (6.2-8.1)
[2024-08-24] MEDS ORDERED: REGLAN10 M2 PO (14:29)
[2024-08-24 15:10] VITALS: BP 124/85
== END 2024-08-24 15:20 | disposition home or self-care (01) ==
LOC: ED 11:15
PROVIDERS: Physician Assistant
DX: A08.4 Viral intestinal infection, unspecified (principal); C25.9 Malignant neoplasm of pancreas, unspecified; Z79.01 Long term (current) use of anticoagulants
CPT/HCPCS: J2765; J7030

== ENCOUNTER → 2024-09-08 | Outpatient (CLI) | payer MEDICARE ==
[~2024-09-08] MED LIST changes: +ACETAMINOPHEN-H1 TA1 PO; +DURAGESIC25 MCG/PAT TD; +FAMOTIDINE20 MG PO; +FUROSEMIDE20 MG PO; +Iohexol 300 - 100 ML VIAL IV ONE; +METOPROLOL SUCC25 M1 PO; +NS 100 ML IV SCH; +POTASSIUM CHLO10 ME6 PO; +PROCHLORPERAZIN10 M2 PO; +REGLAN10 M2 PO; +ZOFRAN ODT4 MG PO; +[UNRECOGNIZED DRUG - REMARK] PO
== END ==
LOC: RAD 11:08
DX: C25.0 Malignant neoplasm of head of pancreas (principal); K31.89 Other diseases of stomach and duodenum
CPT/HCPCS: Q9967